=== PATIENT | female | born 1945 | race African-American/Black ===

== ENCOUNTER 2019-12-14 15:47 | Observation (INO) ==
[2019-12-14] MEDS ORDERED: hydrALAZINE 20 MG/1 ML VIAL IV PRN (18:09)
[2019-12-14] MEDS ORDERED: ONDANSETRON 4 MG/2 ML VIAL IV PRN (18:09)
[2019-12-14] MEDS ORDERED: GLUCAGON 1 MG VIAL IM PRN (18:09)
[2019-12-14] MEDS ORDERED: MORPHINE 4 MG/1 ML VIAL IV PRN (18:09)
[2019-12-14] MEDS ORDERED: LACTULOSE 20 GM/30 ML UDCUP PO PRN (18:09)
[2019-12-14] MEDS ORDERED: DEXTROSE 50% 25 GM/50 ML VIAL IV PRN (18:09)
[2019-12-14] MEDS ORDERED: ACETAMINOPHEN 325 MG TABLET PO PRN (18:09)
[2019-12-14] MEDS ORDERED: DOCUSATE SODIUM 100 MG CAPSULE PO PRN (18:09)
[2019-12-14 18:58] LABS: Basophils % 0.7 % (0.0-0.8); Eosinophils % 0.4 % (0.00-10.9); Hematocrit 37.2 VOL% (35.7-47.0); Hemoglobin 12.3 GM/DL (12.0-16.0); Immature Granulocytes % 0.4 %; Immature Granulocytes Absolute 0.02 #; Lymphocytes % 36.5 % (21.3-54.2); Mean Corpuscular HGB Conc 33.1 GM/DL (32-36); Mean Corpuscular Volume 84.5 FL (87-102); Mean Platelet Volume 9.9 FL (9.6-12.0); Monocytes % 7.1 % (1.7-12.7); Neutrophils % 54.9 % (38.7-73.9); Platelet Count 295 T/CUMM (130-400); Red Cell Distribution Width 15.4 % (9.3-17.3); White Blood Count 5.5 T/CUMM (4-12)
[2019-12-14 19:21] LABS: Albumin 2.4 G/DL (3.4-5.0); Bilirubin,Total 0.7 MG/DL (0.2-1.0); Calcium 8.5 MG/DL (8.5-10.1); Osmolality,Calculated 265.2 MOS/KG (273-304); Thyroid Stimulating Hormone 1.84 uIU/ml (0.358-3.74); Total Protein 7.1 G/DL (6.4-8.3)
[2019-12-14] MEDS: SODIUM CHLORIDE 0.9% 1,000 ML IV SCH (19:40)
[2019-12-14] MEDS: DONEPEZIL 10 MG TABLET PO SCH (20:34)
[2019-12-14] MEDS: MEMANTINE 10 MG TABLET PO SCH (20:34)
[2019-12-14] MEDS: ENOXAPARIN 40 MG/0.4 ML SYRINGE SUBCUT SCH (20:34)
[2019-12-15] MEDS: MELATONIN 3 MG TABLET PO PRN (01:01)
[2019-12-15 05:27] LABS: Basophils % 0.9 % (0.0-0.8); Eosinophils # 0.1 10*3/uL (0.0-0.87); Eosinophils % 1.2 % (0.00-10.9); Hematocrit 33.8 VOL% (35.7-47.0); Hemoglobin 11.3 GM/DL (12.0-16.0); Immature Granulocytes % 0.2 %; Immature Granulocytes Absolute 0.01 #; Lymphocytes # 1.9 10*3/uL (1.4-4.0); Lymphocytes % 43.3 % (21.3-54.2); Mean Corpuscular HGB Conc 33.4 GM/DL (32-36); Mean Corpuscular Volume 83.5 FL (87-102); Mean Platelet Volume 9.9 FL (9.6-12.0); Monocytes % 9.2 % (1.7-12.7); Neutrophils % 45.2 % (38.7-73.9); Platelet Count 260 T/CUMM (130-400); Red Blood Count 4.05 MC/CUMM (3.8-5.5); Red Cell Distribution Width 15.6 % (9.3-17.3); White Blood Count 4.3 T/CUMM (4-12)
[2019-12-15 05:46] LABS: Albumin 2.2 G/DL (3.4-5.0); Bilirubin,Total 1.2 MG/DL (0.2-1.0); Calcium 8.4 MG/DL (8.5-10.1); Osmolality,Calculated 269.8 MOS/KG (273-304); Risk Ratio 1.74; Total Protein 6.3 G/DL (6.4-8.3); VLDL CHOLESTEROL 12.4 MG/DL
[2019-12-15] MEDS: SODIUM CHLORIDE 0.9% 1,000 ML IV SCH ×2 (08:12→23:17)
[2019-12-15] MEDS: ISOSORBIDE DINITRATE 10 MG TABLET PO SCH (10:28)
[2019-12-15] MEDS: VENLAFAXINE XR 37.5 MG CAPSULE PO SCH (10:28)
[2019-12-15] MEDS: PANTOPRAZOLE 40 MG TABLET PO SCH (10:29)
[2019-12-15] MEDS: MEMANTINE 10 MG TABLET PO SCH ×2 (10:29→21:47)
[2019-12-15] MEDS: CLOPIDOGREL 75 MG TABLET PO SCH (10:29)
[2019-12-15] MEDS: amLODIPine 5 MG TABLET PO SCH (10:29)
[2019-12-15] MEDS: POTASSIUM CHLORIDE 20 MEQ TABLET PO SCH ×2 (10:29→21:46)
[2019-12-15] MEDS: FUROSEMIDE 40 MG TABLET PO SCH (10:29)
[2019-12-15] MEDS: ASPIRIN EC 81 MG TABLET PO SCH (10:29)
[2019-12-15] MEDS ORDERED: POTASSIUM CHLORIDE 20 MEQ/15 ML UDCUP PO ONE (13:51)
[2019-12-15 18:29] LABS: Apearance,Urine CLEAR (Clear); Bilirubin,Urine Negative (Negative); Blood, Urine Small mg/dL (Negative); Glucose,Urine (UA) Negative (Negative); Hyaline Casts,Urine 1 /LPF (0-3); Ketones,Urine Negative (Negative); Mucus,Urine Occasional /LPF (Occasional); Nitrite,Urine Negative (Negative); Protein,Urine Negative; RBC,Urine 1 /HPF (0-4); Squamous Epithelial Cell,Urine Occasional /HPF (0-10); Urine Color Straw (Yellow); Urine Specific Gravity 1.005 (1.001-1.035); Urine Urobilinogen < 2.0 EU/DL (0.2-1.0); WBC,Urine 4 /HPF (0-6)
[2019-12-15] MEDS: ENOXAPARIN 40 MG/0.4 ML SYRINGE SUBCUT SCH (21:46)
[2019-12-15] MEDS: DONEPEZIL 10 MG TABLET PO SCH (21:47)
[2019-12-15] MEDS: ATORVASTATIN 40 MG TABLET PO SCH (21:47)
[2019-12-16 06:23] LABS: Basophils % 0.5 % (0.0-0.8); Eosinophils # 0.1 10*3/uL (0.0-0.87); Hematocrit 35.9 VOL% (35.7-47.0); Hemoglobin 11.7 GM/DL (12.0-16.0); Immature Granulocytes % 0.2 %; Immature Granulocytes Absolute 0.01 #; Lymphocytes # 1.9 10*3/uL (1.4-4.0); Lymphocytes % 47.4 % (21.3-54.2); Mean Corpuscular HGB Conc 32.6 GM/DL (32-36); Mean Corpuscular Volume 85.7 FL (87-102); Monocytes % 10.6 % (1.7-12.7); Neutrophils % 38.3 % (38.7-73.9); Platelet Count 288 T/CUMM (130-400); Red Blood Count 4.19 MC/CUMM (3.8-5.5); Red Cell Distribution Width 15.7 % (9.3-17.3); White Blood Count 4.1 T/CUMM (4-12)
[2019-12-16 06:48] LABS: Eosinophils 3 % (0-10); Hypochromasia 1+; Lymphocytes 48 % (20-55); Ovalocytes Slight; Platelet Estimate Adequate; Segmented Neutrophils 40 % (50-85); Total Cells Counted 100
[2019-12-16 07:05] LABS: Albumin 2.2 G/DL (3.4-5.0); Bilirubin,Total 0.9 MG/DL (0.2-1.0); Calcium 8.6 MG/DL (8.5-10.1); Total Protein 6.5 G/DL (6.4-8.3)
[2019-12-16] MEDS ORDERED: MAGNESIUM SULF RIDER 2 GM in PREMIX 1 EACH IV ONE (09:14)
[2019-12-16] MEDS: FUROSEMIDE 40 MG TABLET PO SCH (10:13)
[2019-12-16] MEDS: ISOSORBIDE DINITRATE 10 MG TABLET PO SCH (10:13)
[2019-12-16] MEDS: ASPIRIN EC 81 MG TABLET PO SCH (10:13)
[2019-12-16] MEDS: amLODIPine 5 MG TABLET PO SCH (10:13)
[2019-12-16] MEDS: PANTOPRAZOLE 40 MG TABLET PO SCH (10:13)
[2019-12-16] MEDS: CLOPIDOGREL 75 MG TABLET PO SCH (10:13)
[2019-12-16] MEDS: MEMANTINE 10 MG TABLET PO SCH ×2 (10:13→21:39)
[2019-12-16] MEDS: POTASSIUM CHLORIDE 20 MEQ TABLET PO SCH ×2 (10:14→21:39)
[2019-12-16] MEDS: VENLAFAXINE XR 37.5 MG CAPSULE PO SCH (10:18)
[2019-12-16] MEDS: SODIUM CHLORIDE 0.9% 1,000 ML IV SCH (16:30)
[2019-12-16] MEDS ORDERED: METOPROLOL TARTRATE 25 MG TABLET PO SCH (21:00)
[2019-12-16] MEDS: carvediloL 6.25 MG TABLET PO SCH (21:39)
[2019-12-16] MEDS: DONEPEZIL 10 MG TABLET PO SCH (21:39)
[2019-12-16] MEDS: ENOXAPARIN 40 MG/0.4 ML SYRINGE SUBCUT SCH (21:39)
[2019-12-16] MEDS: ATORVASTATIN 40 MG TABLET PO SCH (21:39)
[2019-12-17] MEDS: MELATONIN 3 MG TABLET PO PRN (00:10)
[2019-12-17 05:51] LABS: Basophils % 0.7 % (0.0-0.8); Eosinophils # 0.1 10*3/uL (0.0-0.87); Eosinophils % 2.6 % (0.00-10.9); Hematocrit 33.5 VOL% (35.7-47.0); Hemoglobin 11.1 GM/DL (12.0-16.0); Immature Granulocytes % 0.2 %; Immature Granulocytes Absolute 0.01 #; Mean Corpuscular HGB Conc 33.1 GM/DL (32-36); Mean Corpuscular Volume 83.1 FL (87-102); Mean Platelet Volume 10.1 FL (9.6-12.0); Monocytes % 9.9 % (1.7-12.7); Neutrophils % 38.6 % (38.7-73.9); Platelet Count 261 T/CUMM (130-400); Red Blood Count 4.03 MC/CUMM (3.8-5.5); Red Cell Distribution Width 15.5 % (9.3-17.3); White Blood Count 4.3 T/CUMM (4-12)
[2019-12-17 06:11] LABS: Calcium 8.1 MG/DL (8.5-10.1); Eosinophils 3 % (0-10); Lymphocytes 41 % (20-55); Osmolality,Calculated 267.1 MOS/KG (273-304); Segmented Neutrophils 41 % (50-85); Total Cells Counted 100
[2019-12-17 06:12] LABS: Burr Cells Slight; Hypochromasia 1+; Ovalocytes Slight; Platelet Estimate Adequate
[2019-12-17 06:13] LABS: Albumin 1.9 G/DL (3.4-5.0); Bilirubin,Total 0.8 MG/DL (0.2-1.0); Calcium 8.2 MG/DL (8.5-10.1); Osmolality,Calculated 266.1 MOS/KG (273-304); Total Protein 5.9 G/DL (6.4-8.3)
[2019-12-17 09:25] VITALS: BP 126/65
[2019-12-17] MEDS: ISOSORBIDE DINITRATE 10 MG TABLET PO SCH (10:07)
[2019-12-17] MEDS: ASPIRIN EC 81 MG TABLET PO SCH (10:08)
[2019-12-17] MEDS: carvediloL 6.25 MG TABLET PO SCH (10:08)
[2019-12-17] MEDS: PANTOPRAZOLE 40 MG TABLET PO SCH (10:08)
[2019-12-17] MEDS: FUROSEMIDE 40 MG TABLET PO SCH (10:08)
[2019-12-17] MEDS: MEMANTINE 10 MG TABLET PO SCH (10:08)
[2019-12-17] MEDS: CLOPIDOGREL 75 MG TABLET PO SCH (10:08)
[2019-12-17] MEDS: POTASSIUM CHLORIDE 20 MEQ TABLET PO SCH (10:08)
[2019-12-17] MEDS: SODIUM CHLORIDE 0.9% 1,000 ML IV SCH (10:09)
[2019-12-17] MEDS: VENLAFAXINE XR 37.5 MG CAPSULE PO SCH (10:16)
== END 2019-12-17 12:56 | disposition home health service (06) ==
LOC: N.TELES → SUATTDRO 17:04
PROVIDERS: ADMIT Internal Medicine; ATTEND Internal Medicine